=== PATIENT | male | born 1995 | race Caucasian/White ===

== ENCOUNTER 2022-05-12 19:38 | Emergency (ER) | payer SELFPAY ==
[2022-05-12] MEDS ORDERED: Cephalexin 250 MG CAP ONE (20:26)
[2022-05-12] MEDS ORDERED: Boostrix 0.5 ML (Tdap) VIAL (>/=7 yrs of age) ONE (20:26)
[2022-05-12] MEDS ORDERED: Sulfameth/Trimethoprim DS 800-160mg TAB ONE (20:26)
== END 2022-05-12 20:45 | disposition home or self-care (01) ==
LOC: BURERS 19:38
DX: T63.441A Toxic effect of venom of bees, accidental (unintentional), initial encounter (principal); L03.113 Cellulitis of right upper limb; F17.210 Nicotine dependence, cigarettes, uncomplicated; Z23 Encounter for immunization
CPT/HCPCS: 90471; 90715